=== PATIENT | male | born 1960 | race Caucasian/White ===

== ENCOUNTER → 2023-03-07 | Outpatient (CLI) | payer OTHER ==
[2023-03-07 16:26] LABS: Prothrombin Time 11.2 sec (10.0-12.5)
[2023-03-07 16:39] LABS: Partial Thromboplastin Time 20.8 sec (22.0-30.0)
[2023-03-07 20:09] LABS: Appearance,Urine Clear (Clear); Bilirubin,Urine Negative (Negative); Blood,Urine Negative (Negative); Color,Urine Yellow (Yellow); Ketones,Urine Negative (Negative); Nitrite,Urine Negative (Negative); Specific Gravity,Urine 1.019 (1.001-1.030); Urobilinogen,Urine 0.2 E.U./DL
[2023-03-07 20:55] LABS: HCT 38.2 % (39.6-50.0); HGB 11.4 g/dL (13.0-17.0); MCH 22.3 pg (27.0-32.0); MCHC 29.8 g/dL (32.0-37.0); MCV 74.6 FL (80.0-97.0); Mean Platelet Volume 11.5 FL (9.5-12.2); NRBC Per 100 WBC 0 X 10*3/uL (0.00-0.01); Platelet Count 462 X 10*3/uL (140-440); RBC 5.12 X 10*6/uL (4.40-5.60); RDW 18.1 % (11.5-14.5); WBC 10.81 X 10*3/uL (4.50-10.00)
[2023-03-07 22:11] LABS: ALT 16 U/L (10-49); AST 19 U/L (14-35); Albumin 4.5 g/dL (3.8-4.9); Alkaline Phosphatase 106 U/L (41-126); Calcium 10.3 mg/dL (8.7-10.3); Carbon Dioxide 22.7 mmol/L (21.6-31.8); Chloride 106 mmol/L (96-109); Globulin 2.5 g/dL (1.6-3.3); Glucose 84 mg/dL (70-110); Potassium 5.4 mmol/L (3.5-5.5); Sodium 141 mmol/L (135-145); Total Bilirubin 0.7 mg/dL (0.3-1.2)
== END | disposition home or self-care (01) ==
LOC: LABPAT 13:56
PROVIDERS: ATTEND Orthopaedic Surgery
DX: Z01.812 Encounter for preprocedural laboratory examination (principal); M16.12 Unilateral primary osteoarthritis, left hip
CPT/HCPCS: 36415; 80053; 81003; 85027; 85610; 85730; 86850; 86900; 86901; 87070; 93005

== ENCOUNTER 2023-03-15 09:13 | Day surgery (SDC) | payer OTHER ==
[2023-03-11 09:54] VITALS: BMI 31.1
[~2023-03-15 09:13] MED LIST: ACETAMINOPHEN TAB 500 MG TAB PO PRN; GABAPENTIN 300 MG CAP PO PRN; HYDROmorphone 0.5 MG/0.5 ML SYRINGE IVP PRN; LACTATED RINGERS 1,000 ML IV SCH; MELOXICAM 7.5 MG TAB PO PRN; ONDANSETRON 4 MG/2 ML VIAL IVP ONE; TRANEXAMIC 1,000 MG/100ML-NACL 1,000 MG in SALINE 1 100ML.BAG IVPB PRN
[2023-03-15] MEDS ORDERED: DEXAMETHASONE SOD PHOSPHATE 4 MG/ML 1 ML VIAL IVP ONE (10:21)
[2023-03-15] MEDS ORDERED: fentaNYL (PF) 50 MCG/ML 2 ML AMP IVP ONE (10:22)
[2023-03-15] MEDS ORDERED: MIDAZOLAM 2 MG/2 ML VIAL IVP ONE (10:22)
[2023-03-15] MEDS ORDERED: HYDROmorphone 1 MG/ML 1 ML SYRINGE IVP PRN (10:52)
[2023-03-15] MEDS ORDERED: MAGNESIUM HYDROXIDE 2,400 MG/30 ML CUP PO PRN (10:52)
[2023-03-15] MEDS ORDERED: ONDANSETRON 4 MG/2 ML VIAL IVP PRN (10:52)
[2023-03-15] MEDS ORDERED: HYDROmorphone 0.5 MG/0.5 ML SYRINGE IVP PRN ×2 (10:52)
[2023-03-15] MEDS ORDERED: NALOXONE 0.4 MG/ML 1 ML VIAL IV PRN (10:52)
[2023-03-15] MEDS ORDERED: HYDROcodone/APAP 7.5-325MG 1 EACH TAB PO PRN ×2 (10:53)
[2023-03-15] MEDS ORDERED: TRANEXAMIC 1,000 MG/100ML-NACL PREMIX BAG ONE (10:58)
[2023-03-15] MEDS ORDERED: PHENYLEPHRINE-0.9% NACL SYG 1,000 MCG/10 ML SYRINGE ONE (10:58)
[2023-03-15] MEDS ORDERED: PROPOFOL 10 MG/ML 20 ML VIAL IV ONE (10:58)
[2023-03-15] MEDS ORDERED: ROPIVACAINE 5 MG/ML 30 ML VIAL ONE (10:58)
[2023-03-15] MEDS ORDERED: MIDAZOLAM 2 MG/2 ML VIAL ONE (10:58)
[2023-03-15] MEDS ORDERED: fentaNYL (PF) 50 MCG/ML 2 ML AMP ONE (10:58)
[2023-03-15] MEDS ORDERED: ePHEDrine 50 MG/ML 1 ML VIAL ONE (10:58)
--- NOTE | 2023-03-15 11:23 | P.ANPRN ---
Procedure Note - Anesthesia - Nerve Block Performed Left Grey Single Time Out Performed: Yes (1022) Date of Procedure: 03/15/23 Procedure Start Time: Procedure Stop Time: Location of Patient: PreOp Indication: Acute Post-Operative Pain, Requested by Surgeon Specifically requested for management of pain by DrAndrew: Tommy Hanna Sedation Type: Sedate with meaningful contact maintained Preparation: Sterile Prep Position: Supine Catheter: None Needle Types: Pajunk Needle Gauge: 21 Ultrasound used to visualize needle placement: Yes Ultrasound used to observe medication spread: Yes Injectate: 0.5% Ropivacaine (see comment for volume) (30) Blood Aspirated: No Pain Paresthesia on Injection Noted: No Resistance on Injection: Normal Image Stored and Saved: Yes Events: Uneventful and Well Tolerated
[2023-03-15] MEDS ORDERED: ROPIVACAINE 5 MG/ML 30 ML VIAL MISCELLANE ONE (11:36)
[2023-03-15] MEDS ORDERED: ceFAZolin 1,000 MG in SODIUM CHLORIDE 0.9% 1,000 ML IRRIGATION ONE (11:37)
--- NOTE | 2023-03-15 12:11 | P.OP ---
Date of Procedure: 03/15/23 Preoperative Diagnosis: Severe osteoarthritis left hip Postoperative Diagnosis: Severe osteoarthritis left hip Procedure(s) Performed: Left total hip arthroplasty with a direct anterior approach Implants: [employer] Polarstem standard size 6 with a collar [employer] R3, 3 hole hemispherical acetabular shell, 56 mm [employer] Reflection 6.5 mm cancellus screw, 20 mm 2 [employer] R3, XLPE 20 acetabular liner [employer]hew Oxinium femoral head 36 mm, +4 All components were press-fit. The articulation is Oxinium on polyethylene. Anesthesia: spinal Surgeon: Tommy Hanna Youth Development Professional #1: Richa Chavez Estimated Blood Loss (ml): 400 Pathology: none sent Condition: stable Disposition: PACU Indications for Procedure: After failure of conservative treatment we discussed the surgical and nonsurgi ciera treatment options at length. Patient wishes to proceed with a total hip arthroplasty with a direct anterior approach. Complications specific to this procedure were discussed at length, including but not limited to infection, leg length discrepancy, dislocation, nerve injury, and fracture. Covid-19 was also discussed at length with the patient, and they are aware of the current policies and procedures. The patient was given the option of delaying surgery, but they elect to proceed knowing these risks. Patient is aware of all these complications and informed consent was obtained Operative Findings: The operative findings are consistent with severe osteoarthritis the left hip Description of Procedure: The patient was seen and evaluated in the preoperative area and the consent was reviewed. The operative site was marked with a skin marker. The patient verified the procedure and operative site. A RAYA block was placed by anesthesia in the preoperative area. The patient was then brought to the operating room and given preoperative antibiotics intravenously. 1 g of Tranexamic acid was also given intravenously. A spinal anesthetic was administered by the anesthesia department. The patient was then placed on the [place] table with the bony prominences well-padded. The hip area was then prepped with a ChloraPrep solution and draped in the usual sterile fashion. A universal timeout was then performed, which confirmed the patient's name, surgical site, ALLERGIES, and procedure being performed on the consent. Next the incision site was located at 1 cm distal and 4 cm lateral to the anterior superior iliac spine. The skin and subcutaneous tissues were sharply incised. Incision was carefully dissected down to the fascia overlying the tensor fascia samuel muscle. This fascia was then incised in line with the muscle fibers. Care was taken to stay laterally in order to avoid injuring the lateral femoral cutan eous nerve. Next, using blunt finger dissection, the tensor fascia samuel muscle was dissected off its investing fascia. The muscle was then carefully retracted laterally with a cobra retractor over the lateral neck of the femur. Next, the circumflex vessels were identified and cauterized using the Aquamantis device. The anterior hip capsule was then exposed. The capsule was then opened and an inverted T fashion. The retractors were then placed intracapsularly. The retractors were maintained intracapsular throughout the procedure. The proximal femur was then visualized. Fluoroscopic x-rays were then taken in order to evaluate the preoperative leg lengths. A small amount of traction was placed on the leg. The femoral neck was then osteotomized at the appropriate level above the lesser trochanter. A small wedge of bone was then removed from the remaining femoral head. Next, using a corkscrew the femoral head was removed from the acetabulum. On gross visual inspection, the femoral head had complete loss of articular cartilage and multiple periarticular osteophytes. The femoral head was then measured. Attention was then turned to the acetabulum. The acetabulum was exposed and any remaining labrum was excised. Sequential reaming of the acetabulum was performed using fluoroscopic guidance until there was a good bed of bleeding cancellus bone. When the appropriate size was reached, a trial was then placed. The position and fit of the trial was checked with fluoroscopy. The trial was then removed. Then, using fluoroscopic guidance, the final implant was impacted at 20 of anteversion and 40 of abduction, and fully seated in the acetabulum. 2 screws were then placed in the acetabulum. Again fluoroscopy was used to check position of the screws. Next, the liner was then impacted, with a 20 elevated liner located in the anterior superior quadrant. Component locking was confirmed. Attention was then directed to the femur. With the aid of the [place] table, the femur was externally rotated to approximately 130, extended, and adducted under the opposite leg. A side hook was then placed under the proximal femur, and the side hook elevator was used to elevate the proximal femur while releasing the capsule. Retractors were then placed. A capsular release was performed, as well as a release of the conjoined tendon, which afforded excellent visualiz ation of the proximal femur. Next, a box osteotome was used to lateralize the proximal femur. A hand collator was then used to locate the femoral canal. Sequential broaching was then performed with appropriate size which afforded excellent fixation in the proximal femur. A trial was then placed with appropriate head and neck, and the hip was gently reduced with the aid of the [place] table. Fluoroscopy was then used to check position of the components, as well as to evaluate the leg lengths and offset. The leg lengths and offset were measured as closely as possible to ensure stability of the hip. The hip was then gently dislocated and the trials were then removed. Final implants were then impacted and the hip was again reduced. Final fluoroscopic x-rays confirmed that the components were in anatomic position. The leg lengths and offset were measured and were found to coincide with the trial measurements. The hip was also taken through range of motion, and found to be stable. The hip was then copiously irrigated with antibiotic solution with pulsatile lavage. The hip was then irrigated with Irrisept solution. The soft tissues were then injected with a ropivacaine solution. A second dose of 1 g of Tranexamic acid was also given intravenously. The fascia was then closed with 2-0 strata fix suture. The subcutaneous tissue was closed with 3-0 Vicryl. The subcuticular tissue was closed with 3-0 strata fix suture. The skin was then closed with Exofin skin glue. After the glue and dried, and Optifoam silver impregnated dressing was applied. The patient was then transferred to the recovery room in stable condition. The front office medical assistant OLIVIA Upton was required due to the complexity of surgery, and the need for skilled executive sales assistant for positioning, draping, exposure, retraction, and closure of the wound.
[2023-03-15] MEDS ORDERED: LACTATED RINGERS 1,000 ML IV ONE (12:23)
--- NOTE | 2023-03-15 14:19 | XR ---
EXAMINATION TYPE: XR Hip Limited LT DATE OF EXAM: 03/15/2023 Comparison: None Clinical History: 63-year-old male Status post hip surgery, assess surgical alignment Findings: Single frontal view shows placement of left total hip arthroplasty. Acetabular cup and femoral stem c omponents of the prosthesis appear well seated without periprosthetic fracture. Alignment grossly rafa tomic. Scattered soft tissue air related to recent operation. Impression: Uncomplicated postoperative appearance left total hip arthroplasty.
[2023-03-15] MEDS: SODIUM CHLORIDE 0.9% 1,000 ML IV SCH (15:19)
--- NOTE | 2023-03-15 15:49 | FL ---
EXAMINATION TYPE: FL guidance operating room, XR Hip Limited LT DATE OF EXAM: 03/15/2023 Comparison: None Clinical History: 63-year-old male LEFT ANTERIOR HIP Findings: LEFT HIP replacement FT: 49 SECONDS DAP: 3.1966 Gycm2 Total images: 5 Impression: Intraoperative fluoroscopy as above.
--- NOTE | 2023-03-15 18:20 | P.CONS ---
History of Present Illness - Reason for Consult Consult date: 03/15/23 Medical Management Requesting physician: Tommy Hanna - History of Present Illness History of Presenting Illness: Patient is a very pleasant 63-year-old male with a past medical history of GERD, stomach ulcer and osteoarthritis. He is currently admitted under orthopedic surg ayanna team status post Left total hip arthroplasty secondary to severe osteoarthritis. We have been consulted for medical management throughout patient's hospitalization. Patient seen and fully evaluated at bedside. He is currently resting comfortably reports mild to moderate postoperative pain. Denies having any postoperative nausea or vomiting. He reports urinating without any difficulties. Denies having any headache, lightheadedness, dizziness, chest pain, palpitations, shortness of breath, or experiencing any numbness/tingling/focal weakness. Review of systems: Pertinent positives and negatives as discussed in HPI, a complete review of systems was performed and all other systems are negative. Physical exam: Vital signs reviewed and stable. General: Nontoxic, no distress and appears stated age. Derm: Skin warm and dry, normal coloration for ethnicity. Head: Atraumatic, normocephalic and symmetric. Eyes: EOMs intact, no lid lag, and anicteric sclera Mouth: no lip lesions, mucus membranes moist Cardiovascular: regular rate and rhythm with normal S1S2, no murmur, positive posterior tibial pulses bilaterally, and cap refill < 2 seconds. Lungs: Respirations even, regular, and unlabored on room air. Lungs CTA bilaterally, no rhonchi, no rales, no wheezing, and no accessory muscle usage. Abdominal: soft, nontender to palpation, no guarding, no appreciable organome [place] Ext: No gross muscle atrophy, no edema, no contractures movement and sensation intact. Dressing in place left lateral hip. Neuro: Speech clear, face symmetrical and CN II-XII grossly intact with no noted focal neuro deficits Psych: Alert and oriented to person, place, time, and situation. Appropriate and pleasant affect. Assessment and Plan of Care: Severe osteoarthritis left hip Status post left hip arthroplasty -Gram per primary admitting orthopedic surgery team including DVT prophylaxis, pain management, wound care, weightbearing, and PT/OT. GERD with history of bleeding gastric ulcer -Had long discussion with patient, he is currently taking omeprazole 20 mg daily. Will increase PPI to Protonix 40 mg daily along with placing patient on Carafate 1 g with meals and at bedtime for 1 month as patient will need to go home with DVT prophylaxis and will likely be on aspirin. -Order placed for Protonix 40 mg daily. -Order placed for Carafate 1 g with meals and at bedtime. Data reviewed: -Preoperative labs drawn showing a stable normocytic anemia with hemoglobin of 11.4 and elevated platelet count of 462. -Vital signs reviewed. Blood pressure 119/80, heart rate 70, respiratory rate 18, and SpO2 of 90% on room air. Thank you for allowing us to participate in the care of this pleasant patient. Do not hesitate to contact us with questions. Someone can be reached from the [facility] hospitalist group all hours of the day at [phone] or via [employer]. Patient was seen independently by Nurse Practitioner. This document was prepared using [employer] ([place]) dictation software. Please allow for errors in agency development manager while rare they do occur. Christopher Corcoran NP rendered care for this patient independently, reviewed the findings and plan as documented in the note above. I did not physically speak with or examine the patient on this date. Past Medical History Additional Past Medical History / Comment(s): STOMACH ULCER History of Any Multi-Drug Resistant Organisms: None Reported Past Surgical History: Orthopedic Surgery Additional Past Surgical History / Comment(s): CANDE. CARPAL TUNNEL REPAIR. STOMACH ULCER PROCEDURE Past Anesthesia/Blood Transfusion Reactions: No Reported Reaction Past Psychological History: No Psychological Hx Reported Smoking Status: Never smoker Past Alcohol Use History: Occasional Past Drug Use History: None Reported - Past Family History Mother Family Medical History: No Reported History Medications and Allergies Home Medications Medication Instructions Recorded Confirmed Type Aspirin [Adult Low Dose Aspirin EC] 81 mg PO BID 30 Days #60 tab 03/15/23 Rx HYDROcodone/APAP 7.5-325MG [[place] 1 - 2 tab PO Q6H PRN #32 tab 03/15/23 Rx 7.5-325] Pantoprazole [Protonix] 40 mg PO DAILY 30 Days #30 tab 03/15/23 Rx Sennosides [Senokot] 2 tab PO DAILY PRN #60 tablet 03/15/23 Rx Sucralfate [Carafate] 1 gm PO ACHS 30 Days #120 gm 03/15/23 Rx Allergies Allergy/AdvReac Type Severity Reaction Status Date / Time clindamycin Allergy Unknown Verified 03/15/23 09:36 Physical Exam Vitals: Vital Signs Temp Pulse Resp BP Pulse Ox 03/15/23 15:57 70 119/80 98 03/15/23 15:42 68 118/80 93 L 03/15/23 15:27 70 121/83 97 03/15/23 15:12 67 124/81 90 L 03/15/23 14:57 66 130/85 97 03/15/23 14:46 59 L 127/80 98 03/15/23 14:23 65 16 149/72 97 03/15/23 14:16 62 146/84 97 03/15/23 14:05 69 16 163/77 99 03/15/23 13:35 66 152/77 99 03/15/23 13:21 78 16 145/76 98 03/15/23 13:05 79 16 126/63 99 03/15/23 12:50 87 16 124/66 95 03/15/23 12:35 78 16 115/59 95 03/15/23 10:32 71 16 118/64 96 03/15/23 10:16 98.2 F 76 18 139/74 99 Intake and Output 03/15/23 03/15/23 03/15/23 06:59 14:59 22:59 Intake Total 1151 Output Total 400 Balance 751 Intake: IV 1151 Output: Estimated Blood Loss 400 Other: Weight 104.7 kg 104.7 kg Results CBC & Chem 7: 03/16/23 08:30 03/16/23 08:30
[2023-03-15] MEDS: SUCRALFATE 1 GM TAB PO SCH (20:38)
[2023-03-15] MEDS: ASPIRIN 81 MG PO SCH (20:40)
[2023-03-15] MEDS ORDERED: SENNOSIDES-DOCUSATE SODIUM 1 EACH TAB PO SCH (21:00)
[2023-03-16] MEDS: SODIUM CHLORIDE 0.9% 1,000 ML IV SCH (05:36)
[2023-03-16] MEDS ORDERED: PANTOPRAZOLE 40 MG TABLET PO SCH (07:30)
[2023-03-16 08:20] VITALS: BP 92/54; PULSE 86; RESP 17; TEMP 97.8
[2023-03-16 09:41] LABS: Anisocytosis Slight; Basophils % (A) 0 %; Eosinophils % (A) 0 %; HCT 32.6 % (39.0-53.0); HGB 9.7 gm/dL (13.0-17.5); Hypochromasia Marked; Lymphocytes # (A) 0.8 k/uL (1.0-4.8); Lymphocytes % (A) 7 %; MCH 22.6 pg (25.0-35.0); MCHC 29.8 g/dL (31.0-37.0); MCV 75.8 fL (80.0-100.0); Mean Platelet Volume 8.3; Microcytosis Slight; Monocytes # (A) 1.3 k/uL (0-1.0); Monocytes % (A) 10 %; Neutrophils # (A) 10.2 k/uL (1.3-7.7); Neutrophils % (A) 81 %; Platelet Count 296 k/uL (150-450); Poikilocytosis Slight; WBC 12.5 k/uL (3.8-10.6)
--- NOTE | 2023-03-16 09:42 | P.DS ---
Providers Expected date of discharge: 03/16/23 Attending physician: Tommy Hanna Consults: 03/15/23 10:52 Consult Physician Routine Consulting Provider: Bianka Guerin Consult Reason/Comments: medical management Do you want consulting provider notified?: Yes Primary care physician: Angelina Hanson MD - Discharge Diagnosis(es) (1) Osteoarthritis of left hip Current Visit: Yes Status: Acute (2) S/P total left hip arthroplasty Current Visit: Yes Status: Acute Hospital Course: This is a 63-year-old male with known history of degenerative arthritis of the left hip. The patient presented for evaluation as an outpatient. After discussion and consideration patient elects to proceed with total hip arthroplasty. The patient is seen preoperatively by Dr. Hanna and medically cleared for surgery by their primary care physician. Patient is admitted to [facility] on 03/15/2023 for total hip arthroplasty. The procedure is performed without complication or sequelae. The patient is doing well postoperatively. Labs and vital signs are stable on day of discharge. On day of discharge patient's hip incision is healing well. There is minimal erythema. There is no drainage noted at this time. There is minimal soft tissue swelling to the hip and thigh. Patient has full foot and ankle motion without difficulty or pain. Calf is soft and nontender to palpation. Neurovascular status to the left lower extremity is intact. Patient is discharged home in good condition. Please see [facility] rec for accurate list of home medications. Plan - Discharge Summary Discharge Rx Participant: No New Discharge Prescriptions: New HYDROcodone/APAP 7.5-325MG [[place] 7.5-325] 1 - 2 tab PO Q6H PRN #32 tab PRN Reason: Pain Aspirin [Adult Low Dose Aspirin EC] 81 mg PO BID 30 Days #60 tab Sennosides [Senokot] 2 tab PO DAILY PRN #60 tablet PRN Reason: Constipation Pantoprazole [Protonix] 40 mg PO DAILY 30 Days #30 tab Sucralfate [Carafate] 1 gm PO ACHS 30 Days #120 gm No Action Omeprazole 20 mg PO DAILY Discharge Medication List Omeprazole 20 mg PO DAILY 03/11/23 [History] Aspirin [Adult Low Dose Aspirin EC] 81 mg PO BID 30 Days #60 tab 03/15/23 [Rx] HYDROcodone/APAP 7.5-325MG [[place] 7.5-325] 1 - 2 tab PO Q6H PRN #32 tab 03/15/23 [Rx] Pantoprazole [Protonix] 40 mg PO DAILY 30 Days #30 tab 03/15/23 [Rx] Sennosides [Senokot] 2 tab PO DAILY PRN #60 tablet 03/15/23 [Rx] Sucralfate [Carafate] 1 gm PO ACHS 30 Days #120 gm 03/15/23 [Rx] Follow up Appointment(s)/Referral(s): Tommy Hanna DO [Doctor of Osteopathic Medicine] - 2 Weeks Activity/Diet/Wound Care/Special Instructions: Weightbearing as tolerated with walker. Leave dressing intact. Dressing may be removed by home care nurse or by patient in 7 days. Then change dressing twice daily until follow up. May shower with initial dressing intact and after removal. If dressing become saturated, please remove. Please take aspirin 81mg twice daily for 30 days to prevent blood clots. Recommend use of compression stockings daily until follow up to help prevent swelling and blood clots. May remove at night before sleeping. Please follow-up with [facility] in 2 weeks and call with any questions or concerns, . Discharge Disposition: HOME WITH HOME HEALTH SERVICES
[2023-03-16] MEDS: ASPIRIN 81 MG PO SCH (09:45)
[2023-03-16] MEDS: SUCRALFATE 1 GM TAB PO SCH (09:45)
[2023-03-16 10:05] LABS: ALT 20 U/L (4-49); AST 28 U/L (17-59); African American GFR (CKD) >90 (>60 ml/min/1.73 sqM); Albumin 3.3 g/dL (3.5-5.0); Albumin/Globulin Ratio 1.3; Alkaline Phosphatase 65 U/L (38-126); Anion Gap 12 mmol/L; Blood Urea Nitrogen 14 mg/dL (9-20); Calcium 8.8 mg/dL (8.4-10.2); Carbon Dioxide 20 mmol/L (22-30); Chloride 104 mmol/L (98-107); Globulin 2.6 g/dL; Glucose 135 mg/dL (74-99); Magnesium 1.9 mg/dL (1.6-2.3); Non-African American GFR(CKD) >90 (>60 ml/min/1.73 sqM); Potassium 4.6 mmol/L (3.5-5.1); Sodium 136 mmol/L (137-145); Total Bilirubin 0.8 mg/dL (0.2-1.3); Total Protein 5.9 g/dL (6.3-8.2)
--- NOTE | 2023-03-16 12:47 | P.PN ---
Subjective Progress Note Date: 03/16/23 History of Presenting Illness: Patient is a very pleasant 63-year-old male with a past medical history of GERD, stomach ulcer and osteoarthritis. He is currently admitted under orthopedic surgery team status post Left total hip arthroplasty secondary to severe osteoarthritis. We have been consulted for medical management throughout patient's hospitalization. Physical exam: Patient seen and fully evaluated at the bedside. He is postoperative day one and appears to be doing well. Patient tolerating oral intake with no episodes of nausea or vomiting, urinating without any difficulties and has been ambulating to and from restroom and with physical therapy well. Vital signs reviewed and stable. General: Nontoxic, no distress and appears stated age. Derm: Skin warm and dry, normal coloration for ethnicity. Head: Atraumatic, normocephalic and symmetric. Eyes: EOMs intact, no lid lag, and anicteric sclera Mouth: no lip lesions, mucus membranes moist Cardiovascular: regular rate and rhythm with normal S1S2, no murmur, positive posterior tibial pulses bilaterally, and cap refill < 2 seconds. Lungs: Respirations even, regular, and unlabored on room air. Lungs CTA bilaterally, no rhonchi, no rales, no wheezing, and no accessory muscle usage. Abdominal: soft, nontender to palpation, no guarding, no appreciable organomegaly Ext: No gross muscle atrophy, no edema, no contractures movement and sensation intact. Dressing in place left lateral hip. Neuro: Speech clear, face symmetrical and CN II-XII grossly intact with no noted focal neuro deficits Psych: Alert and oriented to person, place, time, and situation. Appropriate and pleasant affect. Assessment and Plan of Care: Acute postoperative blood loss anemia, stable and expected finding -Acute postoperative blood loss anemia with postoperative hemoglobin of 9.7 and preoperative hemoglobin of 11.4. -This is a stable and expected finding, no need for transfusion or any other interventions at this time. Severe osteoarthritis left hip Status post left hip arthroplasty -Management per primary admitting orthopedic surgery team including DVT prophylaxis, pain management, wound care, weightbearing, and PT/OT. GERD with history of bleeding gastric ulcer -Had long discussion with patient, he was taking omeprazole 20 mg daily. Changed PPI to Protonix 40 mg daily along with placing patient on Carafate 1 g with meals and at bedtime for 1 month as patient will need to go home with DVT prophylaxis aspirin 81 mg twice daily. Discussed this with patient and informed him that after his 1 month of taking his DVT prophylaxis he may discontinue the Protonix and Carafate and resume daily medication regimen with omeprazole 20 mg daily. -Order placed for Protonix 40 mg daily. -Order placed for Carafate 1 g with meals and at bedtime. Data reviewed: Morning labs reviewed. Acute postoperative blood loss anemia with postoperative hemoglobin of 9.7 and preoperative hemoglobin of 11.4. CBC also revealing mild leukocytosis with WBC count of 12.5. BMP showing no significant abnormalities with sodium 136, potassium 4.6, chloride 104, bicarb 20, and renal function unremarkable with BUN of 14, creatinine 0.86, and GFR greater than 90. Blood glucose was 135 and magnesium 1.9. Vital signs reviewed and stable with blood pressure 152/89, heart rate 76, respiratory rate 16, SpO2 97% on room air, and SpO2 of 98.7F. Patient is medically optimized for discharge at this time once cleared by primary admitting orthopedic surgery team. Thank you for allowing us to participate in the care of this pleasant patient. Do not hesitate to contact us with questions. Someone can be reached from the [facility] hospitalist group all hours of the day at [phone] or via [employer]. Patient was seen independently by Nurse Practitioner. This document was prepared using [employer] dictation software. Please allow for errors in conditioning yard supervisor while rare they do occur. Christopher Corcoran NP rendered care for this patient independently, reviewed the findings and plan as documented in the note above. I did not physically speak with or examine the patient on this date. Objective - Vital Signs Vital signs: Vital Signs Temp 97.8 F 03/16/23 08:00 Pulse 86 03/16/23 08:00 Resp 17 03/16/23 08:00 BP 92/54 03/16/23 08:00 Pulse Ox 93 L 03/16/23 08:00 FiO2 Intake & Output 03/15/23 03/16/23 03/16/23 18:59 06:59 18:59 Intake Total 1151 Output Total 400 1500 Balance 751 -1500 Weight 104.7 kg Intake: IV 1151 Output: Urine 1500 Estimated Blood Loss 400 Other: # Voids 0 1 - Labs CBC & Chem 7: 03/16/23 08:30 03/16/23 08:30
== END 2023-03-16 12:29 | disposition home health service (06) ==
LOC: OR 09:13 → 4SSUR 12:28 → OR 03-16 12:29
PROVIDERS: ATTEND Orthopaedic Surgery
DX: M16.12 Unilateral primary osteoarthritis, left hip (principal); G89.18 Other acute postprocedural pain; F10.90 Alcohol use, unspecified, uncomplicated; K21.9 Gastro-esophageal reflux disease without esophagitis; Z79.899 Other long term (current) drug therapy; Z88.1 Allergy status to other antibiotic agents
CPT/HCPCS: 97161; 97535; 97166; 64447; 80053; 83735; 85025; 73501; 27130; C1776; J2250; J1100; J0690 ×3; J2405; J3010; J2795; J2704; J1170; J2371

== ENCOUNTER → 2023-05-16 | Outpatient (CLI) | payer OTHER ==
[2023-05-16 16:13] LABS: Partial Thromboplastin Time 24.5 sec (22.0-30.0); Prothrombin Time 10.9 sec (10.0-12.5)
[2023-05-17 02:35] LABS: ALT 17 U/L (10-49); AST 15 U/L (14-35); Albumin 4.4 g/dL (3.8-4.9); Albumin/Globulin Ratio 1.63 Ratio (1.60-3.17); Alkaline Phosphatase 138 U/L (41-126); Blood Urea Nitrogen 15.6 mg/dL (9.0-27.0); Calcium 9.8 mg/dL (8.7-10.3); Carbon Dioxide 23.7 mmol/L (21.6-31.8); Chloride 107 mmol/L (96-109); Globulin 2.7 g/dL (1.6-3.3); Glucose 72 mg/dL (70-110); Potassium 4.8 mmol/L (3.5-5.5); Sodium 142 mmol/L (135-145); Total Bilirubin 0.2 mg/dL (0.3-1.2); Total Protein 7.1 g/dL (6.2-8.2)
[2023-05-17 02:36] LABS: HCT 39.4 % (39.6-50.0); HGB 11.1 g/dL (13.0-17.0); MCH 19.2 pg (27.0-32.0); MCHC 28.2 g/dL (32.0-37.0); MCV 68.2 FL (80.0-97.0); Mean Platelet Volume 11.3 FL (9.5-12.2); NRBC Per 100 WBC 0 X 10*3/uL (0.00-0.01); Platelet Count 407 X 10*3/uL (140-440); RBC 5.78 X 10*6/uL (4.40-5.60); RDW 21.2 % (11.5-14.5)
== END | disposition home or self-care (01) ==
LOC: LABPAT 14:18
PROVIDERS: ATTEND Orthopaedic Surgery
DX: Z01.812 Encounter for preprocedural laboratory examination (principal); M16.11 Unilateral primary osteoarthritis, right hip
CPT/HCPCS: 36415; 80053; 85027; 85610; 85730; 86850; 86900; 86901; 87070

== ENCOUNTER 2023-05-24 07:08 | Day surgery (SDC) | payer OTHER ==
[~2023-05-24 07:08] MED LIST changes: -ACETAMINOPHEN TAB 500 MG TAB PO PRN; -GABAPENTIN 300 MG CAP PO PRN; -LACTATED RINGERS 1,000 ML IV SCH; +LIDOCAINE 1% (10MG/ML) FOR IV START INTRADERMA PRN; -MELOXICAM 7.5 MG TAB PO PRN; +MIDAZOLAM 2 MG/2 ML VIAL IV PRN; -ONDANSETRON 4 MG/2 ML VIAL IVP ONE; +fentaNYL (PF) 50 MCG/ML 2 ML AMP IVP PRN
[2023-05-24] MEDS: LACTATED RINGERS 1,000 ML IV SCH (07:55)
[2023-05-24] MEDS: ACETAMINOPHEN TAB 500 MG TAB PO PRN (08:07)
[2023-05-24] MEDS: MELOXICAM 7.5 MG TAB PO PRN (08:08)
[2023-05-24] MEDS: ONDANSETRON 4 MG/2 ML VIAL IVP ONE (08:08)
[2023-05-24] MEDS: DEXAMETHASONE SOD PHOSPHATE 4 MG/ML 1 ML VIAL IV ONE (08:08)
[2023-05-24] MEDS: GABAPENTIN 300 MG CAP PO PRN (08:08)
[2023-05-24] MEDS: METOCLOPRAMIDE 5 MG/ML 2 ML VIAL IVP PRN (08:15)
[2023-05-24] MEDS: MIDAZOLAM 2 MG/2 ML VIAL IVP ONE (08:29)
--- NOTE | 2023-05-24 08:46 | P.ANPRN ---
Procedure Note - Anesthesia - Nerve Block Performed Right Grey Single Time Out Performed: Yes Date of Procedure: 05/24/23 Procedure Start Time: 08:28 Procedure Stop Time: 08:38 Location of Patient: PreOp Indication: Acute Post-Operative Pain, Analgesia, Requested by Surgeon Sedation Type: Sedate with meaningful contact maintained Preparation: Sterile Prep Position: Supine Catheter: None Needle Types: Pajunk Needle Gauge: 21 Ultrasound used to visualize needle placement: Yes Ultrasound used to observe medication spread: Yes Injectate: 0.5% Ropivacaine (see comment for volume) (Ropiv 25 ml+decadron 4mg) Blood Aspirated: No Pain Paresthesia on Injection Noted: No Resistance on Injection: Normal Image Stored and Saved: Yes Events: Uneventful and Well Tolerated
[2023-05-24] MEDS ORDERED: HYDROmorphone 0.5 MG/0.5 ML SYRINGE IVP PRN ×2 (09:26)
[2023-05-24] MEDS ORDERED: HYDROmorphone 1 MG/ML 1 ML SYRINGE IVP PRN (09:26)
[2023-05-24] MEDS ORDERED: NALOXONE 0.4 MG/ML 1 ML VIAL IV PRN (09:26)
[2023-05-24] MEDS ORDERED: MAGNESIUM HYDROXIDE 2,400 MG/30 ML CUP PO PRN (09:26)
[2023-05-24] MEDS ORDERED: HYDROcodone/APAP 7.5-325MG 1 EACH TAB PO PRN (09:28)
[2023-05-24] MEDS ORDERED: DEXAMETHASONE SOD PHOSPHATE 4 MG/ML 1 ML VIAL ONE (09:43)
[2023-05-24] MEDS ORDERED: MIDAZOLAM 2 MG/2 ML VIAL ONE (09:43)
[2023-05-24] MEDS ORDERED: TRANEXAMIC 1,000 MG/100ML-NACL PREMIX BAG ONE (09:43)
[2023-05-24] MEDS ORDERED: ROPIVACAINE 5 MG/ML 30 ML VIAL ONE (09:43)
[2023-05-24] MEDS ORDERED: LIDOCAINE 1% INJ 10MG/ML (20 ML MDV) ONE (09:43)
[2023-05-24] MEDS ORDERED: PROPOFOL 10 MG/ML 20 ML VIAL IV ONE (09:43)
[2023-05-24] MEDS ORDERED: PHENYLEPHRINE 10 MG/ML VIAL ONE (09:43)
[2023-05-24] MEDS ORDERED: diphenhydrAMINE 50 MG/ML 1 ML VIAL ONE (09:43)
[2023-05-24] MEDS ORDERED: KETAMINE HCL IN 0.9 % NACL 50 MG/5 ML SYRINGE ONE (09:43)
[2023-05-24] MEDS: ceFAZolin 1,000 MG in SODIUM CHLORIDE 0.9% 1,000 ML IRRIGATION ONE (10:00)
[2023-05-24] MEDS: ROPIVACAINE 5 MG/ML 30 ML VIAL MISCELLANE ONE ×2 (10:13→10:51)
[2023-05-24] MEDS: LACTATED RINGERS 1,000 ML IV ONE (10:45)
--- NOTE | 2023-05-24 10:54 | P.OP ---
Date of Procedure: 05/24/23 Preoperative Diagnosis: Severe osteoarthritis right hip Postoperative Diagnosis: Severe osteoarthritis right hip Procedure(s) Performed: Right total hip arthroplasty with a direct anterior approach Implants: [employer] Polarstem standard size 6 with a collar [employer] R3, 3 hole hemispherical acetabular shell, 56 mm [employer] Reflection 6.5 mm cancellus screw, 20 mm, 25mm [employer] R3, XLPE 20 acetabular liner [employer] Oxinium femoral head 36 mm, +8 All components were press-fit. The articulation is Oxinium on polyethylene. Anesthesia: spinal Surgeon: Tommy Hanna [employer] Body Repair Chief #1: Richa Chavez Estimated Blood Loss (ml): 400 Pathology: none sent Condition: stable Disposition: PACU Indications for Procedure: After failure of conservative treatment we discussed the surgical and no nsurgical treatment options at length. Patient wishes to proceed with a total hip arthroplasty with a direct anterior approach. Complications specific to this procedure were discussed at length, including but not limited to infection, leg length discrepancy, dislocation, nerve injury, and fracture. Covid-19 was also discussed at length with the patient, and they are aware of the current policies and procedures. The patient was given the option of delaying surgery, but they elect to proceed knowing these risks. Patient is aware of all these complications and informed consent was obtained Operative Findings: The operative findings are consistent with severe osteoarthritis of the right hip Description of Procedure: The patient was seen and evaluated in the preoperative area and the consent was reviewed. The operative site was marked with a skin marker. The patient verified the procedure and operative site. A RAYA block was placed by anesthesia in the preoperative area. The patient was then brought to the operating room and given preoperative antibiotics intravenously. 1 g of Tranexamic acid was also given intravenously. A spinal anesthetic was administered by the anesthesia department. The patient was then placed on the [place] table with the bony prominences well-padded. The hip area was then prepped with a ChloraPrep solution and draped in the usual sterile fashion. A universal timeout was then performed, which confirmed the patient's name, surgical site, ALLERGIES, and procedure being performed on the consent. Next the incision site was located at 1 cm distal and 4 cm lateral to the anterior superior iliac spine. The skin and subcutaneous tissues were sharply incised. Incision was carefully dissected down to the fascia overlying the tensor fascia samuel muscle. This fascia was then incised in line with the muscle fibers. Care was taken to stay laterally in order to avoid injuring the lateral femoral cutaneous nerve. Next, using blunt finger dissection, the tensor fascia samuel muscle was dissected off its investing fascia. The muscle was then carefully retracted laterally with a cobra retractor over the lateral neck of the femur. Next, the circumflex vessels were identified and cauterized using the Aquamantis device. The anterior hip capsule was then exposed. The capsule was then opened and an inverted T fashion. The retractors were then placed intracapsularly. The retractors were maintained intracapsular throughout the procedure. The proximal femur was then visualized. Fluoroscopic x-rays were then taken in order to evaluate the preoperative leg lengths. A small amount of traction was placed on the leg. The femoral neck was then osteotomized at the appropriate level above the lesser trochanter. A small wedge of bone was then removed from the remaining femoral head. Next, using a corkscrew the femoral head was removed from the acetabulum. On gross visual inspection, the femoral head had complete loss of articular cartilage and multiple periarticular osteophytes. The femoral head was then measured. Attention was then turned to the acetabulum. The acetabulum was exposed and any remaining labrum was excised. Sequential reaming of the acetabulum was performed using fluoroscopic guidance until there was a good bed of bleeding cancellus bone. When the appropriate size was reached, a trial was then placed. The position and fit of the trial was checked with fluoroscopy. The trial was then removed. Then, using fluoroscopic guidance, the final implant was impacted at 20 of anteversion and 40 of abduction, and fully seated in the acetabulum. 2 screws were then placed in the acetabulum. Again fluoroscopy was used to check position of the screws. Next, the liner was then impacted, with a 20 elevated liner located in the anterior superior quadrant. Component locking was confirmed. Attention was then directed to the femur. With the aid of the [place] table, the femur was externally rotated to approximately 130, extended, and adducted under the opposite leg. A side hook was then placed under the proximal femur, and the side hook elevator was used to elevate the proximal femur while releasing the capsule. Retractors were then placed. A capsular release was performed, as well as a release of the conjoined tendon, which afforded excellent visualization of the proximal femur. Next, a box osteotome was used to lateralize the proximal femur. A hand rug braider was then used to locate the femoral canal. Sequential broaching was then performed with appropriate size which afforded excellent fixation in the proximal femur. A trial was then placed with appropriate head and neck, and the hip was gently reduced with the aid of the [place] table. Fluoroscopy was then used to check position of the components, as well as to evaluate the leg lengths and offset. The leg lengths and offset were measured as closely as possible to ensure stability of the hip. The hip was then gently dislocated and the trials were then removed. Final implants were then impacted and the hip was again reduced. Final fluoroscopic x-rays confirmed that the components were in anatomic position. The leg lengths and offset were measured and were found to coincide with the trial measurements. The hip was also taken through range of motion, and found to be stable. The hip was then copiously irrigated with antibiotic solution with pulsatile lavage. The hip was then irrigated with Irrisept solution. The soft tissues were then injected with a ropivacaine solution. A second dose of 1 g of Tranexamic acid was also given intravenously. The fascia was then closed with 2-0 strata fix suture. The subcutaneous tissue was closed with 3-0 Vicryl. The subcuticular tissue was closed with 3-0 strata fix suture. The skin was then closed with Exofin skin glue. After the glue and dried, and Optifoam silver impregnated dressing was applied. The patient was then transferred to the recovery room in stable condition. The licensed physical therapy assistant OLIVIA Upton was required due to the complexity of surgery, and the need for skilled cardiovascular surgical tech for positioning, draping, exposure, retraction, and closure of the wound.
--- NOTE | 2023-05-24 12:22 | XR ---
EXAMINATION TYPE: XR Hip Limited one view RT DATE OF EXAM: 05/24/2023 Comparison: None Clinical History: 63-year-old male Status post hip surgery, assess surgical alignment Findings: Image shows placement of right total hip arthroplasty. Acetabular cup and femoral stem components of the prosthesis are well seated without periprosthetic fracture. Alignment grossly anatomic. Soft tiss ue air related to recent operation. Impression: Uncomplicated postoperative appearance right total hip arthroplasty.
--- NOTE | 2023-05-24 13:42 | FL ---
EXAMINATION TYPE: FL guidance operating room, XR Hip Limited RT DATE OF EXAM: 05/24/2023 Comparison: None Clinical History: Rt Hip-Ant Findings: Right anterior hip 1 min fluoro time 4.[address] Hanna 5 images provided. Impression: Intraoperative fluoroscopy as above.
[2023-05-24] MEDS: ONDANSETRON 4 MG/2 ML VIAL IVP PRN (15:10)
[2023-05-24] MEDS: SODIUM CHLORIDE 0.9% 1,000 ML IV SCH (16:22)
[2023-05-24] MEDS: PANTOPRAZOLE 40 MG TABLET PO SCH (18:04)
[2023-05-24] MEDS: HYDROcodone/APAP 7.5-325MG 1 EACH TAB PO PRN (18:05)
--- NOTE | 2023-05-24 19:34 | CONS ---
CONSULTATION REASON FOR CONSULTATION: Advice regarding DJD and other medical issues requested by Orthopedic surgery. HISTORY OF PRESENT ILLNESS: This is a 63-year-old gentleman with a past history of DJD, history of surgery, was admitted after right hip surgery. The patient is doing fine except some dizziness while trying to stand blood pressure is well maintained. There is no history of fever, rigors, chills, shortness of the hematochezia, melena at this time. PAST MEDICAL HISTORY: History of DJD, history of stomach ulcer secondary to aspirin. HOME MEDICATIONS: Aspirin 81 mg daily, and rest of medications noted. ALLERGIES: Clindamycin. FAMILY HISTORY: No history of heart disease or strokes in the family. SOCIAL HISTORY: No history of smoking or alcohol. REVIEW OF SYSTEMS: A 14-point review is negative except as mentioned earlier. PHYSICAL EXAMINATION: VITAL SIGNS: Pulse 84, blood pressure 140/80, respirations 20. HEENT: Conjunctivae normal. NECK: No jugular venous distention. CARDIOVASCULAR: S1, S2. RESPIRATIONS: Diminished at the bases. ABDOMEN: Soft, nontender. LEGS: Status post right hip arthroplasty. NERVOUS SYSTEM: Nonfocal. SKIN: No ulcer, rash, bleeding. JOINTS: No active deforming arthropathy. LABORATORY DATA: Not available, the preop labs are showing hemoglobin 11. ASSESSMENT: 1. Status post right total knee arthroplasty. 2. Mild anemia, microcytic prior to admission. 3. History of DJD. 4. History of stomach ulcer. RECOMMENDATIONS: This 63-year-old gentleman presented with status surgery at this time, I recommend to continue current management and treatment, otherwise I would recommend Protonix. Repeat labs. Closely follow with Orthopedic surgery. Incentive spirometry. DVT prophylaxis. Follow the patient closely with you. MMODL / IJN: [id number] /
[2023-05-24] MEDS: ASPIRIN 81 MG PO SCH (22:18)
[2023-05-24] MEDS: SENNOSIDES-DOCUSATE SODIUM 1 EACH TAB PO SCH (22:18)
[2023-05-25 03:15] VITALS: PULSE 75
[2023-05-25 08:00] VITALS: BP 113/60; RESP 16; TEMP 98.6
--- NOTE | 2023-05-25 09:42 | P.DS ---
Providers Expected date of discharge: 05/25/23 Attending physician: Tommy Hanna Consults: 05/24/23 09:26 Consult Physician Routine Consulting Provider: Samm Neff Consult Reason/Comments: medical management Do you want consulting provider notified?: Yes Primary care physician: Angelina Hanson MD - Discharge Diagnosis(es) (1) Osteoarthritis of right hip Current Visit: Yes Status: Acute (2) S/P total right hip arthroplasty Current Visit: Yes Status: Acute Hospital Course: This is a 63-year-old male with known history of degenerative arthritis of the right hip. The patient presented for evaluation as an outpatient. After discussion and consideration patient elects to proceed with total hip arthroplasty. The patient is seen preoperatively by Dr. Hanna and medically cleared for surgery by their primary care physician. Patient is admitted to [facility] on 05/24/2023 for total hip arthroplasty. The procedure is performed without complication or sequelae. The patient is doing well postoperatively. Labs and vital signs are stable on day of discharge. On day of discharge patient's hip incision is healing well. There is minimal erythema. There is no drainage noted at this time. There is minimal soft tissue swelling to the hip and thigh. Patient has full foot and ankle motion without difficulty or pain. Calf is soft and nontender to palpation. Neurovascular status to the right lower extremity is intact. Patient is discharged home in good condition. Please see med rec for accurate list of home medications. Plan - Discharge Summary Discharge Rx Participant: Yes New Discharge Prescriptions: New Aspirin [Adult Low Dose Aspirin EC] 81 mg PO BID 30 Days #60 tab HYDROcodone/APAP 7.5-325MG [[place] 7.5-325] 1 - 2 tab PO Q6H PRN #32 tab PRN Reason: Pain Sennosides [Senokot] 2 tab PO DAILY PRN #60 tablet PRN Reason: Constipation Discontinued Aspirin 81 mg PO DAILY Discharge Medication List Aspirin [Adult Low Dose Aspirin EC] 81 mg PO BID 30 Days #60 tab 05/24/23 [Rx] HYDROcodone/APAP 7.5-325MG [[place] 7.5-325] 1 - 2 tab PO Q6H PRN #32 tab 05/24/23 [Rx] Sennosides [Senokot] 2 tab PO DAILY PRN #60 tablet 05/24/23 [Rx] Follow up Appointment(s)/Referral(s): Tommy Hanna DO [Doctor of Osteopathic Medicine] - 2 Weeks Activity/Diet/Wound Care/Special Instructions: Weightbearing as tolerated with walker. Leave dressing intact. Dressing may be removed by home care nurse or by patient in 7 days. Then change dressing twice daily until follow up. May shower with initial dressing intact and after removal. If dressing become saturated, please remove. Please take aspirin 81mg twice daily for 30 days to prevent blood clots. Recommend use of compression stockings daily until follow up to help prevent swelling and blood clots. May remove at night before sleeping. [facility] with [facility] 2 weeks and call with any questions or concerns, . Discharge Disposition: HOME WITH HOME HEALTH SERVICES
[2023-05-25 11:37] LABS: Basophils # (M) 0.14 X 10*3/uL (0.00-0.10); Elliptocytes 2+; Eosinophils # (M) 0 X 10*3/uL (0.04-0.35); HCT 32.2 % (39.6-50.0); HGB 9.4 g/dL (13.0-17.0); Lymphocytes # (M) 1.01 X 10*3/uL (0.90-5.00); MCH 19.7 pg (27.0-32.0); MCHC 29.2 g/dL (32.0-37.0); MCV 67.4 FL (80.0-97.0); Microcytosis (M) 3+; Monocytes # (M) 1.59 X 10*3/uL (0.20-1.00); NRBC Per 100 WBC 0 X 10*3/uL (0.00-0.01); Neutrophils # (M) 11.73 X 10*3/uL (1.80-7.70); Neutrophils % (M) 81 %; Platelet Count 357 X 10*3/uL (140-440); RBC 4.78 X 10*6/uL (4.40-5.60); RDW 20.3 % (11.5-14.5); WBC 14.48 X 10*3/uL (4.50-10.00)
[2023-05-25 11:48] LABS: Blood Urea Nitrogen 16.5 mg/dL (9.0-27.0); Calcium 9.1 mg/dL (8.7-10.3); Carbon Dioxide 21.5 mmol/L (21.6-31.8); Chloride 106 mmol/L (96-109); Glucose 110 mg/dL (70-110); Potassium 4.3 mmol/L (3.5-5.5); Sodium 138 mmol/L (135-145)
--- NOTE | 2023-05-25 13:33 | PN ---
PROGRESS NOTE DATE OF SERVICE: 05/25/2023 SUBJECTIVE: This is a 63-year-old gentleman was admitted after right total hip joint arthroplasty improving significantly. No chest pain, no palpitations, no fever. OBJECTIVE: VITAL SIGNS: Pulse is 75, blood pressure 130/60, respirations 16. CHEST: Clear to auscultation. ABDOMEN: Soft. LEGS: Status post surgery. LABORATORY DATA: Hemoglobin 9.4, rest of the labs are noted. ASSESSMENT: 1. Status post right total hip joint arthroplasty. 2. Mild anemia microcytic prior to admission, needs outpatient followup. 3. History of DJD. 4. History of stomach ulcer. RECOMMENDATIONS: Recommended to continue current management, continue symptomatic treatment, continue with DVT prophylaxis. I would also recommend Protonix 40 b.i.d. after discharge and followup labs with the primary physician. Rest of the recommendations per Orthopedic surgery. Further recommendations to follow. MMODL / IJN: [id number] /
== END 2023-05-25 13:51 | disposition home health service (06) ==
LOC: OR 07:08 → EDSTATUS 09:05 → 4SSUR 11:10 → OR 05-25 13:51
PROVIDERS: ATTEND Orthopaedic Surgery
DX: M16.11 Unilateral primary osteoarthritis, right hip (principal); G89.18 Other acute postprocedural pain; D50.9 Iron deficiency anemia, unspecified; Z79.82 Long term (current) use of aspirin; Z88.1 Allergy status to other antibiotic agents; Z87.11 Personal history of peptic ulcer disease; Z98.890 Other specified postprocedural states; Z79.899 Other long term (current) drug therapy
CPT/HCPCS: 97161; 97166; 64447; 80048; 85025; 73501; 27130; C1776; J2250; J1100; J2765; J0690 ×3; J2405; J2795